=== PATIENT | female | born 2000 | race Caucasian/White ===

== ENCOUNTER 2024-06-11 23:39 | Emergency (ER) | payer BC, OTHER ==
[2024-06-12] MEDS ORDERED: NA CHLORIDE 0.9% 1,000 ML ONE ×2 (00:48→01:59)
[2024-06-12 01:07] LABS: Specific Gravity 1.015 (1.005-1.030); Sqamous Epithelial <5 /HPF (None Seen); Urine Bacteria <20 /HPF (<20); Urine Bilirubin NEGATIVE (Negative); Urine Blood Negative (Negative); Urine Clarity Turbid (Clear); Urine Color Light-Yellow (Yellow); Urine Crystals Unidentified Few /HPF (None Seen); Urine Culture Reflex Order NOT NEEDED; Urine Glucose NEGATIVE (Negative); Urine Ketones NEGATIVE (Negative); Urine Microscopic Reflex YN ORDER UMIC; Urine Mucus Slight /HPF (None Seen); Urine Nitrite NEGATIVE (Negative); Urine Protein NEGATIVE (Negative); Urine RBC <5 /HPF (None Seen); Urine Urobilinogen Normal (Normal); Urine WBC <5 /HPF (<5)
[2024-06-12 01:08] LABS: Specific Gravity 1.015 (1.005-1.030)
[2024-06-12 01:10] LABS: Absolute Eosinophils 0.3 K/uL (0-0.5); Absolute Lymphocytes (CBC) 2.3 K/uL (0.7-4.9); Absolute Monocytes 0.6 K/uL (0.1-1.3); Absolute Neutrophil 5.7 K/uL (1.8-8.0); Basophils % 0.3 % (0-1.3); Eosinophils % 2.9 % (0-4.4); Hematocrit 33.2 % (36.0-45.0); Hemoglobin 11.8 g/dL (12.0-15.0); Lymphocytes % 25.9 % (15.3-44.8); MCH 31.7 pg (27.0-35.0); MCHC 35.4 g/dL (32.0-36.0); MCV 89.3 fL (80-100); MPV 6.9 fL (7.6-11.3); Monocytes % 6.8 % (3.3-12.3); Neutrophils % 64.1 % (41.7-73.7); Platelets 233 thou/uL (152-406); RBC Red Blood Cell Count 3.71 M/uL (3.86-4.86); Red Cell Distribution Width 12.8 % (12.1-15.2)
[2024-06-12 01:35] LABS: Anion Gap 8.8 mEq/L (5.0-15.0); Potassium 3.8 mEq/L (3.5-5.1)
[2024-06-12 01:55] LABS: SARS-CoV-2 Antigen CONTROL BLUE LINE VIS/BG OK; SARS-CoV-2 Antigen Rapid Res Negative (Negative)
--- NOTE | 2024-06-12 02:11 | ER ---
Nurse's Notes [facility] Cait Name: Milly Hinds Age: 24 yrs Sex: Female : 2000 Arrival Date: 06/11/2024 Time: 23:39 Bed 17 Private MD: Diagnosis: Acute upper respiratory infection, unspecified;Nausea;18 weeks gestation of Presentation: 06/12 00:10 Chief complaint: Patient states: pelvic pressure, 10 weeks . ha1 00:10 Method Of Arrival: Ambulatory ha1 00:10 Coronavirus screen: Client denies travel out of the [place] in the last 14 days. Ebola ha1 Screen: No symptoms or risks identified at this time. Initial Sepsis Screen: Does the patient meet any 2 criteria? No. Patient's initial sepsis screen is negative. Does the patient have a suspected source of infection? No. Patient's initial sepsis screen is negative. Risk Assessment: Do you want to hurt yourself or someone else? Patient reports no desire to harm self or others. Onset of symptoms was June 12, 2024. 00:10 Acuity: RAY 3 ha1 Triage Assessment: 00:16 General: Appears comfortable, Behavior is calm, cooperative. Pain: Complains of pain in ha1 pelvis Pain currently is 4 out of 10 on a pain scale. Quality of pain is described as pressure. Neuro: Level of Consciousness is awake, alert, obeys commands, Oriented to person, place, time, situation. Cardiovascular: Patient's skin is warm and dry. Respiratory: Airway is patent Respiratory effort is even, unlabored, Respiratory pattern is regular, symmetrical. NEUROPSYCHIATRIST: 01:33 1, Full Term 0, Premature 0, 0, Living 0, unknown marilu 02:30 Verified dd2 Historical: - Allergies: 00:32 No Known Allergies; ha1 - PMHx: 00:32 None; ha1 - Immunization history:: Adult Immunizations up to date. - Infectious Disease History:: Denies. - Social history:: Smoking status: Patient denies any tobacco usage or history of. Screenin:25 [facility] ED Fall Risk Assessment (Adult) History of falling in the last 3 months, dd2 including since admission No falls in past 3 months (0 pts) Confusion or Disorientation No (0 pts) Intoxicated or Sedated No (0 pts) Impaired Gait No (0 pts) Mobility Assist Device Used No (0 pt) Altered Elimination No (0 pt) Score/Fall Risk Level 0 - 2 = Low Risk Oriented to surroundings, Maintained a safe environment, Educated pt \T\ family on fall prevention, incl call for assistance when getting out of bed, Assessed \T\ reinforced patient's understanding of fall precautions, Hourly rounding (assess needs \T\ fall precautionary measures) done. Abuse screen: Denies threats or abuse. Nutritional screening: No deficits noted. Tuberculosis screening: No symptoms or risk factors identified. Assessment: 01:25 General: Appears in no apparent distress. uncomfortable, Behavior is calm, cooperative, dd2 appropriate for age. Pain: Complains of pain in GENERALIZED MUSCLE ACHES Pain does not radiate. Pain currently is 4 out of 10 on a pain scale. Neuro: Ponce Agitation-Sedation Scale (RASS): 0 - Alert and Calm Level of Consciousness is awake, alert, obeys commands, Oriented to person, place, time, situation, Appropriate for age. Cardiovascular: No deficits noted. Patient's skin is warm and dry. Respiratory: No deficits noted. Airway is patent Respiratory effort is even, unlabored, Respiratory pattern is regular, symmetrical, Breath sounds are clear bilaterally. GI: Abdomen is non-distended, Bowel sounds present X 4 quads. Abd is soft and non tender X 4 quads. Reports nausea. : No deficits noted. No signs and/or symptoms were reported regarding the genitourinary system. EENT: Nares with drainage noted Reports nasal congestion. Derm: No deficits noted. No signs and/or symptoms reported regarding the dermatologic system. Musculoskeletal: No deficits noted. No signs and/or symptoms reported regarding the musculoskeletal system. Circulation, motion, and sensation intact. Range of motion: intact in all extremities. Vital Signs: 00:10 BP 119 / 66; Pulse 88; Resp 20 S; Temp 98.1(O); Pulse Ox 100% on R/A; Weight 84.82 kg; ha1 Height 5 ft. 0 in. ; 01:25 BP 113 / 73; Pulse 65; Resp 16; Pulse Ox 100% on R/A; dd2 02:28 BP 110 / 70; Pulse 66; Resp 16; Temp 98.3; Pulse Ox 99% on R/A; dd2 00:10 Body Mass Index 36.52 (84.82 kg, 152.4 cm) ha1 Jayson Coma Score: 01:25 Eye Response: spontaneous(4). Motor Response: obeys commands(6). Verbal Response: dd2 oriented(5). Total: 15. ED Course: 06/11 23:46 Patient arrived in ED. [email or web address] 06/12 00:09 Lazaro Leung MD is Attending Physician. marilu 00:20 SADI VASQUEZ, RN is Primary Nurse. dd2 00:32 Triage completed. ha1 00:33 Inserted saline lock: 20 gauge in right antecubital area, using aseptic technique. ha1 Blood collected. Flushed with 10 mL NS. 01:25 No provider procedures requiring assistance completed. Patient maintains SpO2 dd2 saturation greater than 95% on room air. 01:25 Patient has correct armband on for positive identification. Bed in low position. Call dd2 light in reach. Side rails up X 1. Client placed on continuous cardiac and pulse oximetry monitoring. NIBP monitoring applied. Door closed. Noise minimized. Warm blanket given. Pillow given. Verbal reassurance given. 01:59 US OB Limited In Process Unspecified. EDMS 02:28 IV discontinued, intact, bleeding controlled, No redness/swelling at site. Pressure dd2 dressing applied. 02:28 Provided Education on: D/C EDUCATION. dd2 02:31 Arm band placed on. dd2 Administered Medications: 00:55 Drug: NS 0.9% IV 1000 ml IV at 1000 ml once; to be given as a bolus over 60 minutes dd2 Route: IV; Rate: 1000 ml; Site: right antecubital; 01:55 Follow up: IV Status: Completed infusion; IV Intake: 1000ml dd2 01:59 Drug: NS 0.9% IV 1000 ml IV at 1000 ml once; to be given as a bolus over 60 minutes dd2 Route: IV; Rate: 1000 ml; Site: right antecubital; 02:28 Follow up: IV Status: Completed infusion; IV Intake: 100ml dd2 Medication: 01:25 VIS not applicable for this client. dd2 Intake: 01:55 IV: 1000ml; Total: 1000ml. dd2 02:28 IV: 100ml; Total: 1100ml. dd2 Outcome: 02:11 Discharge ordered by . marilu 02:28 Discharged to home ambulatory, dd2 02:28 Condition: stable 02:28 Discharge instructions given to patient, Instructed on discharge instructions, follow up and referral plans. medication usage, Demonstrated understanding of instructions, follow-up care, medications, Prescriptions given X , :31 Patient left the ED. dd2 Signatures: Dispatcher [employer] EDMA Lazaro Leung MD MD cha Jeffries, Jennifer [email or web address] Puja Gonzalez RN RN ha1 SADI VASQUEZ RN RN dd2
--- NOTE | 2024-06-12 02:11 | EDPHYS ---
Physician Documentation [facility] Name: Milly Hinds Age: 24 yrs Sex: Female : 2000 Arrival Date: 06/11/2024 Time: 23:39 Bed 17 Private MD: ED Physician Lazaro Leung HPI: 06/12 01:32 This 24 yrs old Female presents to ER via Ambulatory with complaints of EST marilu 19 WKS GESTATION, MUSCLE ACHES, Nausea. 01:32 The patient presents to the emergency department with nausea, vomiting, that is marilu continuous. Onset: The symptoms/episode began/occurred 2 day(s) ago. Possible causes: unknown. The symptoms are aggravated by nothing. The symptoms are alleviated by nothing. Associated signs and symptoms: The patient has no apparent associated signs or symptoms. Severity of symptoms: At their worst the symptoms were mild in the emergency department the symptoms are unchanged. The patient has experienced similar episodes in the past, a few times. VAMP STITCHER: 01:33 1, Full Term 0, Premature 0, 0, Living 0, unknown marilu 02:30 Verified dd2 Historical: - Allergies: 00:32 No Known Allergies; ha1 - PMHx: 00:32 None; ha1 - Immunization history:: Adult Immunizations up to date. - Infectious Disease History:: Denies. - Social history:: Smoking status: Patient denies any tobacco usage or history of. ROS: 01:33 Constitutional: Negative for fever, chills, and weight loss, Eyes: Negative for injury, marilu pain, redness, and discharge, Neck: Negative for injury, pain, and swelling, Cardiovascular: Negative for chest pain, palpitations, and edema, Respiratory: Negative for shortness of breath, cough, wheezing, and pleuritic chest pain, Abdomen/GI: Negative for abdominal pain, nausea, vomiting, diarrhea, and constipation, Back: Negative for injury and pain, : Negative for injury, bleeding, discharge, and swelling, MS/Extremity: Negative for injury and deformity, Skin: Negative for injury, rash, and discoloration, Neuro: Negative for headache, weakness, numbness, tingling, and seizure, Psych: Negative for depression, anxiety, suicide ideation, homicidal ideation, and hallucinations, Allergy/Immunology: Negative for hives, rash, and allergies, Endocrine: Negative for neck swelling, polydipsia, polyuria, polyphagia, and marked weight changes, Hematologic/Lymphatic: Negative for swollen nodes, abnormal bleeding, and unusual bruising, :33 ENT: Positive for rhinorrhea, sinus congestion, Exam: :33 Constitutional: This is a well developed, well nourished patient who is awake, alert, marilu and in no acute distress. Head/Face: Normocephalic, atraumatic. Eyes: Pupils equal round and reactive to light, extra-ocular motions intact. Lids and lashes normal. Conjunctiva and sclera are non-icteric and not injected. Cornea within normal limits. Periorbital areas with no swelling, redness, or edema. ENT: Nares patent. No nasal discharge, no septal abnormalities noted. Tympanic membranes are normal and external auditory canals are clear. Oropharynx with no redness, swelling, or masses, exudates, or evidence of obstruction, uvula midline. Mucous membranes moist. Neck: Trachea midline, no thyromegaly or masses palpated, and no cervical lymphadenopathy. Supple, full range of motion without nuchal rigidity, or vertebral point tenderness. No Meningismus. Chest/axilla: Normal chest wall appearance and motion. Nontender with no deformity. No lesions are appreciated. Cardiovascular: Regular rate and rhythm with a normal S1 and S2. No gallops, murmurs, or rubs. Normal PMI, no JVD. No pulse deficits. Respiratory: Lungs have equal breath sounds bilaterally, clear to auscultation and percussion. No rales, rhonchi or wheezes noted. No increased work of breathing, no retractions or nasal flaring. Back: No spinal tenderness. No costovertebral tenderness. Full range of motion. Skin: Warm, dry with normal turgor. Normal color with no rashes, no lesions, and no evidence of cellulitis. MS/ Extremity: Pulses equal, no cyanosis. Neurovascular intact. Full, normal range of motion., bilateral aka Neuro: Awake and alert, GCS 15, oriented to person, place, time, and situation. Cranial nerves II-XII grossly intact. Motor strength 5/5 in all extremities. Sensory grossly intact. Cerebellar exam normal. Normal gait. :33 Abdomen/GI: Inspection: gravid appearance, is noted, Bowel sounds: normal, Palpation: nontender, in all quadrants, Liver: no appreciated palpable abnormalities, Hernia: not appreciated, Vital Signs: 00:10 BP 119 / 66; Pulse 88; Resp 20 S; Temp 98.1(O); Pulse Ox 100% on R/A; Weight 84.82 kg; ha1 Height 5 ft. 0 in. ; 01:25 BP 113 / 73; Pulse 65; Resp 16; Pulse Ox 100% on R/A; dd2 02:28 BP 110 / 70; Pulse 66; Resp 16; Temp 98.3; Pulse Ox 99% on R/A; dd2 00:10 Body Mass Index 36.52 (84.82 kg, 152.4 cm) ha1 Jayson Coma Score: 01:25 Eye Response: spontaneous(4). Motor Response: obeys commands(6). Verbal Response: dd2 oriented(5). Total: 15. MDM: 00:24 Medical Screening Exam initiated marilu 02:09 Antibiotic administration: Not indicated. Differential diagnosis: obstructed airway, marilu bronchitis, flu, URI, Nonspecific abd pain, viral gastroenteritis, gastroenteritis. Data reviewed: vital signs, nurses notes, lab test result(s), radiologic studies, ultrasound. Consideration of Admission/Observation Escalation of care including admission/observation considered. I considered the following discharge prescriptions or medication management in the emergency department Medications were administered in the Emergency Department. See MAR. Independent interpretation of the following test(s) in the Emergency Department Radiology Department Ultrasound: My interpretation is US PREG. Test considered but Not performed: EKG: NO EKG. Care significantly affected by the following chronic conditions: NONE. 06/12 00:11 Order name: Abo/rh Typing; Complete Time: : [facility] 06/12 00:11 Order name: Basic Metabolic Panel; Complete Time: [facility] 06/12 00:11 Order name: CBC with Diff; Complete Time: : [facility] 06/12 00:11 Order name: Test, Urine; Complete Time: : [facility] 06/12 00:11 Order name: Quantitative Hcg; Complete Time: : [facility] 06/12 00:11 Order name: Urinalysis w/ reflexes; Complete Time: : [facility] 06/12 00:11 Order name: Flu; Complete Time: 02:03 [facility] 06/12 00:11 Order name: SARS RAPID; Complete Time: :03 [facility] 06/12 00:11 Order name: Strep; Complete Time: 02:03 [facility] 06/12 02:02 Order name: Throat Culture [facility] 06/12 00:11 Order name: US OB Limited [facility] 06/12 00:11 Order name: IV Saline Lock; Complete Time: 00:55 [facility] 06/12 00:11 Order name: Labs collected and sent; Complete Time: 00:55 [facility] 06/12 00:11 Order name: NPO; Complete Time: 00:55 [facility] Administered Medications: 00:55 Drug: NS 0.9% IV 1000 ml IV at 1000 ml once; to be given as a bolus over 60 minutes dd2 Route: IV; Rate: 1000 ml; Site: right antecubital; 01:55 Follow up: IV Status: Completed infusion; IV Intake: 1000ml dd2 01:59 Drug: NS 0.9% IV 1000 ml IV at 1000 ml once; to be given as a bolus over 60 minutes dd2 Route: IV; Rate: 1000 ml; Site: right antecubital; 02:28 Follow up: IV Status: Completed infusion; IV Intake: 100ml dd2 Disposition Summary: 06/12/24 02:11 Discharge Ordered Notes: Location: Home [facility] Problem: new [facility] Symptoms: have improved marilu Condition: Stable [facility] Diagnosis - Acute upper respiratory infection, unspecified marilu - Nausea marilu - 18 weeks gestation of marilu Followup: marilu - With: Private Physician - When: 2 - 3 days - Reason: Recheck today's complaints, Continuance of care, Re-evaluation by your physician Discharge Instructions: - Discharge Summary Sheet marilu - Dehydration, Adult marilu - Nausea, Adult marilu - Care marilu - Cool Mist Vaporizer marilu - Upper Respiratory Infection, Adult, [id number] marilu - Dehydration, Adult, [id number] [facility] Forms: - Medication Reconciliation Form [facility] - Antibiotic Education marilu - Prescription Opioid Use marilu - Patient Portal Instructions [facility] - Leadership Thank You Letter [facility] Prescriptions: - ondansetron 4 mg Oral Tablet,disintegrating - take 1 tablet ORAL route every 6-8 hours for 5 days as needed for nausea and marilu vomiting; 20 tablet; Refills: 0, Product Selection Permitted Signatures: Dispatcher [employer] Lazaro Delgado MD MD cha Ayala, Heidy, RN RN ha1 SADI VASQUEZ RN RN dd2 Corrections: (The following items were deleted from the chart) 00:11 00:11 ABO/RH TYPING+BB.LAB.BRZ ordered. EDMS EDMS 00:11 00:11 BASIC METABOLIC PANEL+C.LAB.BRZ ordered. EDMS EDMS 00:11 00:11 CBC+H.LAB.BRZ ordered. EDMS EDMS 00:11 00:11 Test, Urine+UC.LAB.BRZ ordered. EDMS EDMS 00:11 00:11 QUANTITATIVE HCG+C.LAB.BRZ ordered. EDMS EDMS 00:11 00:11 Urinalysis+U.LAB.BRZ ordered. EDMS EDMS 00:11 00:11 Influenza Screen (A \T\ B)+BA.LAB.BRZ ordered. EDMS EDMS 00:11 00:11 SARS-COV-2 Antigen Rapid+I.LAB.BRZ ordered. EDMS EDMS 00:11 00:11 Group A Streptococcus Rapid Sc+BA.LAB.BRZ ordered. EDMS EDMS 01:35 01:35 FHT's ordered. marilu michel 02:14 02:11 19 weeks gestation of marilu michel 02:20 02:14 10 weeks gestation of marilu michel
[2024-06-12 02:38] VITALS: BP 110/70; TEMP 98.3; O2SAT 99
--- NOTE | 2024-06-12 03:24 | RAD REPORT ---
PROCEDURE: US LIMITED INDICATION: ABD CRAMPING, . COMPARISON: None TECHNIQUE: Grayscale and color Doppler imaging was performed. FINDINGS: A single intrauterine is visualized. movement and heart motion are visualized. position: Cephalic. Heart rate: 149 beats per minute Placental location: Posterior. Previa: None. Abruption:None. Cervix: Closed. 3.53 cm in length. ZANDRA: Subjectively adequate. BIOMETRY: Femur length: 2.93 cm, correlating with 19 weeks 0 days IMPRESSION: Single live intrauterine as described. Electronically signed by: Thu Calderon MD 06/12/2024 03:18 AM [facility] Due to temporary technical issues with the PACS/Power scribe reporting system, reports are being sign ed by the in-house radiologist without review as a courtesy to ensure prompt reporting the interpreting rad iologist is fully responsible for the content of the report. Transcribed Date/Time: 06/12/2024 3:24 AM
== END 2024-06-12 02:31 | disposition home or self-care (01) ==
LOC: ER 23:39
DX: O99.512 Diseases of the respiratory system complicating pregnancy, second trimester (principal); J06.9 Acute upper respiratory infection, unspecified; Z3A.18 18 weeks gestation of pregnancy; Z11.52 Encounter for screening for COVID-19
CPT/HCPCS: 87070; 85025; 81001; 80048; 36415; 86900; 81025; 86901; 87081; 84702; 87804 ×2; 76815; 96360; 99284; 87811; J7030 ×2